=== PATIENT | female | born 2000 | race Two or more races ===

== ENCOUNTER 2019-02-09 16:00 | Emergency (ER) | payer MEDICAID ==
--- NOTE | 2019-02-09 16:59 | EDPHY ---
H & P Stated Complaint: Sharp L CP last night x2min. "Tight" today s assoc s/s. Time Seen by Provider: 02/09/19 16:50 HPI/ROS: HPI: This is a 19-year-old female who presents with Chief Complaint: Sharp L CP last night x2min Location: Left side of chest Quality: Burning sharp pain Duration: Lasted 2 min Signs and Symptoms: no shortness of breath at rest, no shortness of breath on exertion, no cough, + chest pain, + palpitations, no lower extremity edema, no wheezing, no orthopnea, no paroxysmal nocturnal dyspnea, no fever, no injury/ trauma, no hemoptysis, no carpal pedal spasms, no fever, no wheezing Timing: Acute, resolved Severity: Moderate Context: Patient is a student at [employer], presents with complaints of yesterday evening of left sided and midsternal burning chest pain that occurred while she was filling out an incident report of 1 of her resident. She reports that this discomfort was accompanied by the feeling that her "heart was racing." Patient is in and a local dormitory. Patient reports that she was advised that 1 of her residence was becoming suicidal and she had to contact the door days and felt a report. She reports that after she fell off the reports she started to developed left-sided chest burning pain that was nonradiating in nature and lasted approximately 2 min. She reports that she sat down and put both of her hands on her chest and use deep breathing techniques to relieve the pain. She also reports that she ate 2 pieces of pizza 30 min prior to the incident. Denies any indigestion, early satiety, abdominal bloating. Patient has had no recent long distance travel. Denies any lower extremity edema or calf pain. No family history of clotting disorder. Patient does not have regular menses due to Nexplanon placement. No history of anemia. Patient reports that this is the 1st time that this symptom has occurred. She reports that she has not had the symptom again. Nonsmoker. Patient admits that yesterday she took caffeine pill from [email or web address] that was 200 mg and stayed up all night prior studying. Modifying Factors: See above Comment: ROS: A comprehensive 10 system review of systems is otherwise negative aside from elements mentioned in the history of present illness. MEDICAL/SURGICAL/SOCIAL HISTORY: Medical history: Generally healthy. Does not take any regular medications. Has Nexplanon. Surgical history: Denies Social history: Originally from [place], [place]. Student at [employer]. Denies alcohol, drug, tobacco use. CONSTITUTIONAL: Well-developed, well-nourished, articulate, well-appearing young adult black female, awake and alert, no obvious distress HEENT: Atraumatic and normocephalic, PERRL, EOMI. Nares patent; no rhinorrhea; no nasal mucosal edema. Tympanic membranes clear. Oropharynx clear, no exudate and moist pink mucosa. Airway patent. No lymphadenopathy. No meningismus. Cardiovascular: Normal S1/S2, regular rate, regular rhythm, without murmur rub or gallop. PULMONARY/CHEST: Symmetrical and nontender. Clear to auscultation bilaterally. Good air movement. No accessory muscle usage. ABDOMEN: Soft, nondistended, nontender, no rebound, no guarding, no peritoneal signs, no masses or organomegaly. No CVAT. EXTREMITIES: 2/2 pulses, strength 5/5, no deformities, no clubbing, no cyanosis or edema. Negative Homans sign. NEUROLOGICAL: no focal neuro deficits. GCS 15. SKIN: Warm and dry, no erythema. no rash. Good capillary refill. Source: Patient Exam Limitations: No limitations - Personal History Current Tetanus/Diphtheria Vaccine: Yes - Medical/Surgical History Hx Asthma: Yes Hx Chronic Respiratory Disease: No Hx Diabetes: No Hx Cardiac Disease: No Hx Renal Disease: No Hx Cirrhosis: No Hx Alcoholism: No Hx HIV/AIDS: No Hx Splenectomy or Spleen Trauma: No Other PMH: none - Social History Smoking Status: Never smoked Constitutional: Initial Vital Signs Temperature (C) 36.8 C 02/09/19 16:11 Heart Rate 86 02/09/19 16:11 Respiratory Rate 16 02/09/19 16:11 Blood Pressure 139/83 H 02/09/19 16:11 O2 Sat (%) 94 02/09/19 16:11 O2 Delivery Mode Room Air Allergies/Adverse Reactions: No Known Allergies Allergy (Unverified 02/09/19 16:11) Medical Decision Making ED Course/Re-evaluation: Vital signs reviewed and stable upon arrival. Placed on monitoring manager. During interview patient became anxious at times and heart rate went 80-100. Remained in normal sinus rhythm. EKG my read shows sinus tachycardia with a rate of 108 beats per minute with flattened T-waves but no acute ischemic changes. Wells criteria is low risk for pulmonary embolism I doubt acute coronary syndrome, arrhythmia, pulmonary embolism, infectious causes. I suspect this is related to excessive caffeine use and stress. Referral given to primary care provider to establish care. Advised patient to stop taking 200 mg of caffeine daily, increase fluid intake, relaxation techniques. This patient was seen under the supervision of my secondary supervising physician. I evaluated care for this patient with attending. Differential Diagnosis: Chest pain including but not limited to myocardial ischemia, pulmonary embolus, chest wall pain, pleural inflammation and pulmonary infectious causes. Departure - Departure Disposition: Home, Routine, Self-Care Clinical Impression: Caffeine use, Heart palpitations Condition: Good Instructions: Heart Palpitations (ED) Additional Instructions: Consume a minimum of 8-10 glasses of water or electrolyte fluid replacement drinks that include Gatorade, Powerade, Pedialyte. Avoid large, fatty, fried foods and large meals right before bedtime. Avoid excessive caffeine use. Establish care with primary care provider in the next 1-2 weeks. Referrals: Aury Espinoza MD [Medical Doctor] - As per Instructions Stand Alone Forms: School Excuse
[2019-02-09 17:18] VITALS: BP 146/90
--- NOTE | 2019-02-09 17:28 | CPEKG ---
Test Reason : OPEN Blood Pressure : / mmHG Vent. Rate : 108 BPM Atrial Rate : 108 BPM P-R Int : 136 ms QRS Dur : 070 ms QT Int : 332 ms P-R-T Axes : 060 069 -28 degrees QTc Int : 445 ms Sinus tachycardia Borderline T wave abnormalities Confirmed by Jermaine Rincon ([id number]) on 02/09/2019 5:28:07 PM Referred By: Jermaine Rincon Confirmed By:Jermaine Rincon
== END 2019-02-09 17:19 | disposition home or self-care (01) ==
DX: R00.2 Palpitations (principal); F15.90 Other stimulant use, unspecified, uncomplicated